=== PATIENT | male | born 1955 | race Hispanic/Latino ===

== ENCOUNTER 2017-12-05 00:44 | Emergency (ER) | payer SELFPAY ==
[2017-12-05] MEDS ORDERED: EPINEPHrine 1 MG/10 ML Abboject SYRINGE ONE (09:00)
== END 2017-12-05 03:50 | disposition expired ==
LOC: NAV ERS 00:44
DX: I46.9 Cardiac arrest, cause unspecified (principal)
CPT/HCPCS: 92950; 96374; J0171